=== PATIENT | female | born 1980 | race Caucasian/White ===

== ENCOUNTER 2019-12-03 12:50 | Inpatient (IN) | payer BC, OTHER ==
[~2019-12-03] VITALS: Ht 160 cm; Wt 82.7 kg
[2019-12-03] MEDS ORDERED: LACTATED RINGERS 1,000 ML IV SCH (14:07)
[2019-12-03 14:13] VITALS: BP 131/92
[2019-12-03] MEDS ORDERED: CHLORHEXIDINE 15 ML UDC MM ONE (14:30)
[2019-12-03 14:46] VITALS: BP 131/92
[2019-12-03] MEDS ORDERED: OMEP-110 PO (14:57)
[2019-12-03 15:00] LABS: BASOPHILS # (AUTO) 0.03 x10^3/uL (0-0.1); BASOPHILS % (AUTO) 1 % (0-1); EOSINOPHILS # (AUTO) 0.28 x10^3/uL (0-0.4); EOSINOPHILS % (AUTO) 5 % (1-7); LYMPHOCYTES # (AUTO) 1.56 x10^3/uL (1-3.4); LYMPHOCYTES % (AUTO) 28 % (22-44); MD NO; MEAN CORPUSCULAR HEMOGLOBIN 30.1 pg (27.0-34.8); MEAN CORPUSCULAR HGB CONC 33.2 g/dL (32.4-35.8); MEAN CORPUSCULAR VOLUME 90.7 fL (80-100); MEAN PLATELET VOLUME 9.1 fL (7.4-10.4); MONOCYTES # (AUTO) 0.38 x10^3/uL (0.2-0.8); MONOCYTES % (AUTO) 7 % (2-9); NEUTROPHILS # (AUTO) 3.27 x10^3/uL (1.8-6.8); NEUTROPHILS % (AUTO) 59 % (42-75); PLATELET COUNT 272 x10^3/uL (130-400); RED BLOOD COUNT 4.75 x10^6/uL (3.82-5.3); RED CELL DISTRIBUTION WIDTH 13.7 % (9.6-15.2)
[2019-12-03 15:05] LABS: ANION GAP 6 mmol/L (5-15); CALCIUM 9.8 mg/dL (8.5-10.1); CHLORIDE 104 mmol/L (98-107)
[2019-12-03 15:09] LABS: ALANINE AMINOTRANSFERASE 44 U/L (12-78); ALKALINE PHOSPHATASE 71 U/L (45-117); BILIRUBIN,TOTAL 0.3 mg/dL (0.2-1.0); TOTAL PROTEIN 8.1 g/dL (6.4-8.2)
[2019-12-03 15:19] LABS: HCG UR SG 1.008 (1.003-1.030); MICROSCOPIC NOT IND
[2019-12-03] MEDS ORDERED: hydrALAzine 20 MG/ML, 1ML IV PRN (16:30)
[2019-12-03] MEDS ORDERED: OXYcodone 5 MG/5 ML ORAL.SOL UDC PO PRN (16:30)
[2019-12-03] MEDS ORDERED: DIPHENHYDRAMINE 50 MG/ML, 1ML IVPush PRN (16:30)
[2019-12-03] MEDS ORDERED: MEPERIDINE/PF 25MG/0.5ML IVPush PRN (16:30)
[2019-12-03] MEDS ORDERED: LABETALOL 5MG/ML, 20ML IV PRN (16:30)
[2019-12-03] MEDS ORDERED: HALOPERIDOL 5 MG/ML IV PRN (16:30)
[2019-12-03] MEDS ORDERED: PROMETHAZINE 25 MG/ML, 1ML IVPush PRN (16:30)
[2019-12-03] MEDS ORDERED: MIDAZOLAM 1 MG/ML, 2ML ONE ×2 (16:33→18:10)
[2019-12-03] MEDS ORDERED: FENTANYL PF 250 MCG/5ML ONE (16:33)
[2019-12-03] MEDS ORDERED: LIDOCAINE GEL 2%, 5ML ONE (16:35)
[2019-12-03] MEDS ORDERED: LIDOCAINE/PF 1%-EPI 1:200K, 30 ML ONE (16:35)
[2019-12-03] MEDS ORDERED: FENTANYL PF 100 MCG/2ML ONE ×4 (18:11→22:26)
[2019-12-03] MEDS ORDERED: INDIGO CARMINE 0.8%, 5ML ONE (18:26)
[2019-12-03] MEDS ORDERED: PROPOFOL 10 MG/ML, 20ML ONE (18:40)
[2019-12-03] MEDS ORDERED: ROCURONIUM 10MG/ML,5ML ONE (18:40)
[2019-12-03] MEDS ORDERED: CEFAZOLIN 1,000 MG ONE (18:40)
[2019-12-03] MEDS ORDERED: NEOSTIGMINE 1 MG/ML, 10ML ONE (18:40)
[2019-12-03] MEDS ORDERED: DEXAMETHASONE 4 MG/ML, 1ML ONE (18:40)
[2019-12-03] MEDS ORDERED: SUCCINYLCHOLINE 20 MG/ML, 10ML ONE (18:40)
[2019-12-03] MEDS ORDERED: ONDANSETRON 2MG/ML, 2ML ONE (18:40)
[2019-12-03] MEDS ORDERED: GLYCOPYRROLATE 0.2MG/1ML, 5ML ONE (18:40)
[2019-12-03] MEDS ORDERED: OMNIPAQUE 350 MG/ML, 50 ML BOTTLE IV ONE (20:01)
[2019-12-03] MEDS ORDERED: OMNIPAQUE 350 MG/ML, 50 ML BOTTLE ONE (20:30)
[2019-12-03] MEDS ORDERED: MEPERIDINE/PF 25MG/ML,1ML ONE (21:52)
[2019-12-03] MEDS ORDERED: OXYcodone 5 MG/5 ML ORAL.SOL UDC ONE (22:26)
[2019-12-03] MEDS: FENTANYL PF 100 MCG/2ML IV PRN ×2 (22:33→22:43)
[2019-12-03] MEDS ORDERED: HYDROmorphone 1 MG/ML, 1ML INJ ONE (22:47)
[2019-12-03] MEDS: HYDROmorphone 1 MG/ML, 1ML INJ IVPush PRN ×2 (22:54→23:00)
[2019-12-03] MEDS ORDERED: PROMETHAZINE 25 MG/ML, 1ML ONE (23:06)
[2019-12-04 00:12] VITALS: BP 124/79
[2019-12-04] MEDS ORDERED: ONDANSETRON 2MG/ML, 2ML IV PRN (00:30)
[2019-12-04] MEDS ORDERED: OXYcodone/APAP 5/325MG TABLET PO PRN (00:30)
[2019-12-04] MEDS: LACTATED RINGERS 1,000 ML IV SCH ×3 (00:30→16:30)
[2019-12-04] MEDS ORDERED: morphine SULFATE 10 MG/ML, 1ML IV PRN (00:30)
[2019-12-04] MEDS: KETOROLAC 30 MG/1 ML IV PRN ×3 (05:05→18:03)
[2019-12-04] MEDS: CEFAZOLIN PMX 1GM/50ML 50 ML IVPB SCH ×2 (06:35→14:18)
[2019-12-04] MEDS: SODIUM CHLORIDE FLUSH 10ML SYR IVF SCH ×2 (09:25→21:21)
[2019-12-04 09:45] VITALS: BP 99/65
[2019-12-04 12:20] VITALS: BP 107/70
[2019-12-04 19:03] VITALS: BP 99/66
[2019-12-04] MEDS: DOCUSATE 100 MG CAPSULE PO SCH (21:21)
[2019-12-05 00:04] VITALS: BP 103/67
[2019-12-05] MEDS: KETOROLAC 30 MG/1 ML IV PRN ×3 (00:05→12:06)
[2019-12-05] MEDS: LACTATED RINGERS 1,000 ML IV SCH ×2 (00:30→07:53)
[2019-12-05] MEDS: DOCUSATE 100 MG CAPSULE PO SCH (07:52)
[2019-12-05] MEDS: SODIUM CHLORIDE FLUSH 10ML SYR IVF SCH (07:53)
[2019-12-05 08:29] VITALS: BP 110/75
[2019-12-05 14:00] VITALS: BP 102/70
== END 2019-12-05 14:35 | disposition home or self-care (01) | DRG 742 ==
LOC: ORIP 13:34 → 4WST 12-04 00:05
PROVIDERS: ADMIT Obstetrics & Gynecology Gynecology; ATTEND Obstetrics & Gynecology Gynecology
PROC: 0UT90ZZ Resection of Uterus, Open Approach (ICD-10-PCS; 2019-12-03)
PROC: 0T768DZ Dilation of Right Ureter with Intraluminal Device, Via Natural or Artificial Opening Endoscopic (ICD-10-PCS; 2019-12-03)
PROC: 0TN68ZZ Release Right Ureter, Via Natural or Artificial Opening Endoscopic (ICD-10-PCS; 2019-12-03)
PROC: BT1D1ZZ Fluoroscopy of Right Kidney, Ureter and Bladder using Low Osmolar Contrast (ICD-10-PCS; 2019-12-03)
PROC: 0TJB8ZZ Inspection of Bladder, Via Natural or Artificial Opening Endoscopic (ICD-10-PCS; 2019-12-03)
PROC: 0UT70ZZ Resection of Bilateral Fallopian Tubes, Open Approach (ICD-10-PCS; principal; 2019-12-03 15:00)
DX: D25.9 Leiomyoma of uterus, unspecified (principal); S37.10XA Unspecified injury of ureter, initial encounter; N13.5 Crossing vessel and stricture of ureter without hydronephrosis
CPT/HCPCS: 36415; 74018; 74420; 80053; 81003; 81025; 85014; 85018; 85025; 86850; 86900; 87635; 88307; G0378; J0690; J1100; J1170; J1885; J2175; J2250; J2270; J2405; J2550; J2704; J2710; J3010; J3490; Q9967; C1760; C2617; J0330; J7120